=== PATIENT | female | born 1950 | race African-American/Black ===

== ENCOUNTER 2018-07-09 18:40 | Emergency (ER) | payer MEDICARE, MEDICAID ==
[~2018-07-09] VITALS: Ht 160 cm; Wt 79.1 kg
[~2018-07-09 18:40] MED LIST: AMLO5TAB4 PO; LISI2.5T47 PO; OMEP20CA10 PO; ZOLP5TAB2 PO
[2018-07-09] MEDS ORDERED: ONDANSETRON HCL 4MG/2ML VIAL IV STA (21:25)
[2018-07-09] MEDS ORDERED: MORPHINE SULFATE 4 MG/ML CPJ (NOT FOR IM USE) IV STA (21:25)
[2018-07-09] MEDS ORDERED: SODIUM CHLORIDE 0.9% 1,000 ML IV ONE (21:25)
[2018-07-09 23:13] LABS: CLARITY URINE CLEAR (CLEAR); COLOR URINE DARK YELLOW (YELLOW); KETONES URINE TRACE (NEGATIVE); LEUKOCYTE ESTERASE URINE NEGATIVE (NEGATIVE); NITRITE URINE NEGATIVE (NEGATIVE); OCCULT BLOOD URINE NEGATIVE (NEGATIVE); PH URINE 5.5 (4.5-8.0); PROTEIN URINE 1+ (NEGATIVE); SPECIFIC GRAVITY URINE 1.027 (1.005-1.030)
[2018-07-09 23:22] LABS: *COCAINE SCREEN URINE NEGATIVE (NEGATIVE)
[2018-07-09 23:23] LABS: *AMPHETAMINES SCREEN URINE NEGATIVE (NEGATIVE); *BARBITURATES SCREEN URINE NEGATIVE (NEGATIVE); CANNABINOID URINE SCREEN NEGATIVE (NEGATIVE); METHADONE URINE SCREEN NEGATIVE (NEGATIVE); OPIATES URINE SCREEN NEGATIVE (NEGATIVE); PHENCYCLIDINE URINE SCREEN NEGATIVE (NEGATIVE)
[2018-07-09 23:24] LABS: *BENZODIAZEPINES SCREEN URINE NEGATIVE (NEGATIVE)
[2018-07-09 23:52] LABS: BASOPHILS % 1.2 % (0.0-2.0); EOSINOPHILS % 1.1 % (0.0-5.0); HEMATOCRIT. 41.7 % (36.0-48.0); HEMOGLOBIN. 13.6 g/dL (12.0-16.0); MEAN CORPUSCULAR HEMOGLOBIN 29.2 pg (28.0-32.0); MEAN CORPUSCULAR VOLUME 89.7 fL (81.0-99.0); MEAN PLATELET VOLUME 9.3 fl (7.4-10.4); MONOCYTES % 4.5 % (2.0-8.0); NEUTROPHILS % 59.2 % (40.0-76.0); PLATELET 270 x1000/uL (130-400); RED BLOOD CELL COUNT 4.65 mill/uL (4.2-5.4); RED CELL DISTRIBUTION WIDTH 13.4 % (11.6-14.6)
[2018-07-09 23:54] LABS: CHLORIDE 108 mEq/L (98-107)
[2018-07-09 23:58] LABS: ETHANOL BLOOD < 10 mg/dL
[2018-07-10 00:02] LABS: PROTHROMBIN TIME 10.5 sec (9.1-11.1)
[2018-07-10 03:40] VITALS: BP 153/87
== END 2018-07-10 03:43 | disposition home or self-care (01) ==
LOC: ER 22:14
DX: M79.652 Pain in left thigh (principal); K57.91 Diverticulosis of intestine, part unspecified, without perforation or abscess with bleeding; N28.1 Cyst of kidney, acquired; R30.0 Dysuria; K44.9 Diaphragmatic hernia without obstruction or gangrene; I10 Essential (primary) hypertension
CPT/HCPCS: 36415; 71045; 74176; 80053; 80305; 81003; 83690; 83880; 84484; 85025; 85610; 93005; 93970; 96374; 96375; 99285; G0482; J2270; J2405; J7030